=== PATIENT | female | born 1980 | race African-American/Black ===

== ENCOUNTER 2017-02-15 12:34 | Emergency (ER) | payer SELFPAY ==
[~2017-02-15] VITALS: Ht 162.6 cm; Wt 74.5 kg
[2017-02-15 12:37] VITALS: BP 132/75; PULSE 101; TEMP 98.7
[2017-02-15] MEDS ORDERED: LEVOXYL0.025 MG PO (12:40)
[2017-02-15] MEDS ORDERED: DESYREL 50MG50 MG PO (12:41)
[2017-02-15] MEDS ORDERED: PEN-VEE K500 MG PO (13:29)
== END 2017-02-15 13:39 | disposition home or self-care (01) ==
LOC: COL.ER 12:34
DX: R68.84 Jaw pain (principal); K02.9 Dental caries, unspecified

== ENCOUNTER 2017-03-11 14:44 | Emergency (ER) | payer SELFPAY ==
[~2017-03-11] VITALS: Ht 165.1 cm; Wt 72.6 kg
[~2017-03-11 14:44] MED LIST: DESYREL 50MG50 MG PO; LEVOXYL0.025 MG PO; PEN-VEE K500 MG PO
[2017-03-11 14:50] VITALS: BP 124/77; TEMP 98.5
[2017-03-11] MEDS ORDERED: NORCO 325 MG-51 TAB PO (17:44)
[2017-03-11] MEDS ORDERED: MOTRIN 800800 MG/TAB PO (17:44)
[2017-03-11 17:55] VITALS: PULSE 74
== END 2017-03-11 17:58 | disposition home or self-care (01) ==
LOC: COL.ER 14:44
DX: M25.511 Pain in right shoulder (principal); E03.9 Hypothyroidism, unspecified; X50.0XXA Overexertion from strenuous movement or load, initial encounter; Y92.89 Other specified places as the place of occurrence of the external cause; Y99.0 Civilian activity done for income or pay

== ENCOUNTER 2017-04-06 17:27 | Emergency (ER) | payer SELFPAY ==
[~2017-04-06] VITALS: Ht 162.6 cm; Wt 72.7 kg
[~2017-04-06 17:27] MED LIST changes: +MOTRIN 800800 MG/TAB PO; +NORCO 325 MG-51 TAB PO
[2017-04-06 17:40] VITALS: BP 128/77; TEMP 98.9
[2017-04-06 18:56] LABS: BASO # 0.1 (0.0-0.2); BASO % 0.6 % (0.0-2.0); EOS # 0.1 (0.0-0.7); EOS % 0.8 % (0-4.0); GRAN # 6.9 (1.4-6.5); GRAN % 58.6 % (42.2-75.2); HEMOGLOBIN 12.7 g/dl (12.5-16.0); LYMPH % 34.4 % (20.0-51.0); MEAN CELL VOLUME 104 fl (80.0-100.0); MEAN CORPUSCULAR HEMOGLOBIN 36 pg (27.0-31.0); MEAN CORPUSCULAR HGB CONC 34 g/dl (33.0-37.0); MEAN PLATELET VOLUME 9.7 fl (7.4-10.4); MONO # 0.6 (0.1-0.6); PLATELET COUNT 411 K/mm3 (130-400); RED BLOOD COUNT 3.56 M/mm3 (4.10-5.30); REDCELL DISTRIBUTION WIDTH-CV 12.7 % (11.5-14.5)
[2017-04-06 19:10] LABS: HEMATOCRIT 36.9 % (37.0-47.0)
[2017-04-06 19:37] LABS: ALBUMIN 4.9 gm/dL (3.5-5.0); BILIRUBIN,TOTAL 0.5 mg/dL (0.0-1.0); CALCIUM 9.7 mg/dL (8.4-10.2); CREATININE, serum 0.82 mg/dL (0.52-1.25); POTASSIUM 3.4 mmol/L (3.4-5.0); TOTAL PROTEIN 8.6 gm/dL (6.4-8.2)
[2017-04-06 19:43] LABS: COLLECTION METHOD CLEAN CATCH
[2017-04-06 19:53] LABS: MUCOUS Present /lpf; PH 5 (5-8); SQUAMOUS EPITHELIAL 0-2 /hpf; URINE APPEARANCE Clear; URINE BACTERIA None Seen /hpf; URINE BILIRUBIN Negative (NEGATIVE); URINE BLOOD Negative (NEGATIVE); URINE COLOR Yellow; URINE GLUCOSE Negative (NEGATIVE); URINE KETONE Trace (NEGATIVE); URINE LEUKOCYTE ESTERASE Negative (NEGATIVE); URINE NITRATE Negative (NEGATIVE); URINE PROTEIN(semi-quant) Negative (NEGATIVE); URINE RBC 0-2 /hpf; URINE UROBILINOGEN Negative (NEGATIVE)
[2017-04-06 21:25] VITALS: PULSE 75
== END 2017-04-06 21:26 | disposition home or self-care (01) ==
LOC: COL.ER 17:27
PROVIDERS: Emergency Medicine
DX: K43.9 Ventral hernia without obstruction or gangrene (principal); E03.9 Hypothyroidism, unspecified
CPT/HCPCS: J2765; J3010; J7030; J7050; Q9967

== ENCOUNTER 2017-08-10 19:11 | Emergency (ER) | payer SELFPAY ==
[~2017-08-10] VITALS: Ht 162.6 cm; Wt 81.8 kg
[2017-08-10 19:13] VITALS: BP 130/83; PULSE 94; TEMP 98.6
== END 2017-08-10 20:46 | disposition home or self-care (01) ==
LOC: COL.ER 19:11
DX: S90.01XA Contusion of right ankle, initial encounter (principal); X50.1XXA Overexertion from prolonged static or awkward postures, initial encounter; Y92.59 Other trade areas as the place of occurrence of the external cause; Y99.0 Civilian activity done for income or pay

== ENCOUNTER 2018-09-03 16:53 | Emergency (ER) | payer SELFPAY ==
[~2018-09-03] VITALS: Ht 162.6 cm; Wt 70.8 kg
[2018-09-03 17:19] VITALS: TEMP 97.7
[2018-09-03] MEDS ORDERED: AMOXICILLIN 8751 TAB PO (19:35)
[2018-09-03 20:02] VITALS: BP 109/76; PULSE 76
== END 2018-09-03 20:07 | disposition home or self-care (01) ==
LOC: COL.ER 16:53
DX: K02.9 Dental caries, unspecified (principal)

== ENCOUNTER 2018-09-16 17:31 | Emergency (ER) | payer SELFPAY ==
[~2018-09-16] VITALS: Ht 162.6 cm; Wt 68.2 kg
[~2018-09-16 17:31] MED LIST changes: +AMOXICILLIN 8751 TAB PO
[2018-09-16 17:46] VITALS: BP 137/76; PULSE 78; TEMP 98.2
[2018-09-16 18:07] LABS: COLLECTION METHOD CLEAN CATCH
[2018-09-16 18:28] LABS: MUCOUS Present /lpf; PH 5 (5-8); SQUAMOUS EPITHELIAL 0-2 /hpf; URINE APPEARANCE Clear; URINE BACTERIA None Seen /hpf; URINE BILIRUBIN Negative (NEGATIVE); URINE BLOOD Negative (NEGATIVE); URINE COLOR Yellow; URINE GLUCOSE Negative (NEGATIVE); URINE KETONE Negative (NEGATIVE); URINE LEUKOCYTE ESTERASE Negative (NEGATIVE); URINE NITRATE Negative (NEGATIVE); URINE PROTEIN(semi-quant) Negative (NEGATIVE); URINE RBC 0-2 /hpf; URINE UROBILINOGEN Negative (NEGATIVE)
[2018-09-16] MEDS ORDERED: FLEXERIL 1010 MG/TAB PO (18:31)
[2018-09-16] MEDS ORDERED: NORCO 325 MG-51 TAB PO (18:31)
== END 2018-09-16 18:41 | disposition home or self-care (01) ==
LOC: COL.ER 17:31
PROVIDERS: Physician Assistant
DX: M54.5 Low back pain (principal); X50.0XXA Overexertion from strenuous movement or load, initial encounter